=== PATIENT | male | born 1990 | race African-American/Black ===

== ENCOUNTER 2017-12-11 15:40 | Emergency (ER) | payer SELFPAY ==
[2017-12-11 16:30] VITALS: BP 123/77
--- NOTE | 2017-12-11 17:27 | UC ---
Throat Pain/Nasal Edin HPI - HPI Summary HPI Summary: Pt presents with a right sided sore throat for 2 days. He feels that is pain is getting worse and his tonsil is getting more swollen. He is able to eat and drink with mild pain. Breathing ok. Denies fever, chills, cough, SOB, chest pain , abdominal pain, n/v/d/c. - History of Current Complaint Chief Complaint: UCGeneralIllness Stated Complaint: SORE THROAT Time Seen by Provider: 12/11/17 17:13 Hx Obtained From: Patient Onset/Duration: Sudden Onset Severity: Moderate Pain Intensity: 5 Pain Scale Used: 0-10 Numeric - Allergies/Home Medications Allergies/Adverse Reactions: Allergies Allergy/AdvReac Type Severity Reaction Status Date / Time No Known Allergies Allergy Verified 12/11/17 16:29 Home Medications: Home Medications Ibuprofen [Goodsense Ibuprofen] 600 12/11/17 [History] [id number] [Daytime/Nite Time Cold/Fl] 12/11/17 [History] PMH/Surg Hx/FS Hx/Imm Hx Previously Healthy: Yes - Surgical History Surgical History: None - Social History Occupation: Employed Full-time Lives: With Family Alcohol Use: Daily Substance Use Type: Marijuana Smoking Status (MU): Light Every Day Tobacco Smoker Review of Systems Constitutional: Negative Skin: Negative Eyes: Negative ENT: Sore Throat Respiratory: Negative Cardiovascular: Negative Gastrointestinal: Negative Neurological: Negative Psychological: Negative All Other Systems Reviewed And Are Negative: Yes Physical Exam Triage Information Reviewed: Yes Appearance: Well-Appearing, No Pain Distress, Well-Nourished Vital Signs: Initial Vital Signs Temp 98.8 F 12/11/17 16:24 Pulse 87 12/11/17 16:24 Resp 16 12/11/17 16:24 BP 123/77 12/11/17 16:24 Pulse Ox 100 12/11/17 16:24 Vital Signs Reviewed: Yes Eyes: Positive: Conjunctiva Clear. Negative: Conjunctiva Inflamed, Discharge ENT: Positive: Hearing grossly normal, Pharyngeal erythema, TMs normal, Tonsillar swelling - Right tonsil 2+, Tonsillar exudate - Right tonsil, Uvula midline. Negative: Nasal congestion, Nasal drainage, TM bulging, TM dull, TM red, Sinus tenderness Neck: Positive: Supple, No Lymphadenopathy, Other: - TTP right tonsillar Respiratory: Positive: Chest non-tender, Lungs clear, Normal breath sounds, No respiratory distress, No accessory muscle use Cardiovascular: Positive: RRR, No Murmur, Pulses Normal Neurological: Positive: Alert Psychological: Positive: Age Appropriate Behavior Skin: Negative: rashes Throat Pain/Nasal Course/Dx - Course Course Of Treatment: POC strep negative. Concerning for an early presentation of peritonsillar abscess. Will treat with amoxicillin. - Differential Dx/Diagnosis Provider Diagnoses: Tonsillitis Discharge - Discharge Plan Condition: Stable Disposition: HOME Prescriptions: Amoxicillin PO (*) [Amoxicillin 500 MG CAP*] 500 mg PO Q12H #14 cap Patient Education Materials: Tonsillitis (ED) Referrals: No Primary Care Phys,NOPCP [Primary Care Provider] - Additional Instructions: If you develop a fever, shortness of breath, chest pain, new or worsening symptoms - please call your PCP or go to the ED.
== END 2017-12-11 17:52 | disposition home or self-care (01) ==
LOC: UCEAST 15:40
DX: J03.90 Acute tonsillitis, unspecified (principal); F12.90 Cannabis use, unspecified, uncomplicated; F17.210 Nicotine dependence, cigarettes, uncomplicated
CPT/HCPCS: 87651; 99212; G0463